=== PATIENT | female | born 1990 | race Caucasian/White ===

== ENCOUNTER → 2016-07-05 | Outpatient (CLI) | payer OTHER ==
--- NOTE | 2016-07-05 15:02 | US ---
EXAMINATION TYPE: US OB <= 14 wk fetus DATE OF EXAM: 07/05/2016 2:30 PM COMPARISON: NONE CLINICAL HISTORY: Confirm dates. Uncertain LMP. EXAM PERFORMED: <14wk OB EXAM MEASUREMENTS: GESTATIONAL AGE / DATING Physician Established: Not established Dates by LMP: (12 weeks/0 days) EDC: 01/17/2017 Dates by First Scan: No Previous Dates by Current Scan : (11 weeks/5 days) EDC: 01/19/2017 MATERNAL ANATOMY Uterus: 14.0 x 9.6 x 7.7 cm Right Ovary: 2.4 x 1.6 x 1.5 cm Left Ovary: 2.9 x 2.5 x 1.8 cm Post CDS / Adnexa: wnl Presence of free fluid: no Presence of corpus luteal cyst: no Presence of subchorionic bleed: 1.1 x 3.3 x 0.9 cm GESTATION / SURVEY CRL: 4.7 cm (11 weeks/4 days) MSD: 5.5 cm (11 weeks/3 days) BPD: 1.5 cm (12 weeks/1day) Heart Rate: 155 bpm Rhythm: Normal IUP: Viable IUP Date of LMP: 04/12/2016 IMPRESSION: normal, viable 11+ week IUP
[2016-07-05 15:12] LABS: CHCM 32.9; HCT 37.4 % (34.0-46.0); HDW 2.72; HGB 12.4 gm/dL (11.4-16.0); MCH 28.2 pg (25.0-35.0); MCV 85.4 fL (80.0-100.0); Mean Platelet Volume 7.1; RBC 4.38 m/uL (3.80-5.40); RDW 14.4 % (11.5-15.5); WBC 10.8 k/uL (3.8-10.6)
[2016-07-05 15:32] LABS: ALT 21 U/L (9-52); AST 15 U/L (14-36); Bilirubin, Delta 0.3 mg/dL (0.0-0.2); Glucose 78 mg/dL (74-99); Non-African American GFR(MDRD) >60 (>60 ml/min/1.73 sqM); Total Bilirubin 0.5 mg/dL (0.2-1.3)
[2016-07-05 16:47] LABS: Hepatitis B Surface Ag Index 0.08
[2016-07-05 21:30] LABS: Treponemal Ab Non-Reactive (Non-Reactive)
== END | disposition home or self-care (01) ==
LOC: RADUSWWP 13:54
PROVIDERS: ATTEND Obstetrics & Gynecology
DX: Z34.81 Encounter for supervision of other normal pregnancy, first trimester (principal); Z36 Encounter for antenatal screening of mother; O99.712 Diseases of the skin and subcutaneous tissue complicating pregnancy, second trimester; L29.9 Pruritus, unspecified; Z3A.01 Less than 8 weeks gestation of pregnancy; Z3A.11 11 weeks gestation of pregnancy
CPT/HCPCS: 36415; 76801; 82239; 82248; 82565; 82947; 84443; 84450; 84460; 85027; 86762; 86777; 86778; 86780; 86850; 86900; 86901; 87340

== ENCOUNTER → 2016-08-22 | Outpatient (CLI) | payer OTHER ==
--- NOTE | 2016-08-22 12:38 | US ---
EXAMINATION TYPE: US OB anatomy transabd DATE OF EXAM: 08/22/2016 11:39 AM COMPARISON: NONE HISTORY: anatomy TECHNIQUE: OBTA EXAM MEASUREMENTS: GESTATIONAL AGE / DATING Physician Established: (18 weeks/4 days) EDC: 01/19/2017 Dates by LMP: unknown Dates by First Scan: (18 weeks/4 days) EDC: 01/19/2017 Dates by Current Scan for: (18 weeks/2 days) EDC: 01/21/2017 SURVEY IUP: Single PLACENTA: Anterior PREVIA: No previa ARY: 12.2 cm Normal CERVICAL LENGTH (transabdominal: norm > 3.0cm): 4.0 cm BIOMETRY PRESENTATION: Vertex LIE: Longitudinal BPD: 4.2 cm 18 weeks / 6 days HC: 15.6 cm 18 weeks / 4 days AC: 12.4 cm 18 weeks / 1 days FL: 2.5 cm 17 weeks / 4 days ESTIMATED WEIGHT IN GRAMS: 215 grams ESTIMATED WEIGHT IN LBS/OZS: 0 lbs. 8 oz. WEIGHT PERCENTAGE BASED ON ESTABLISHED DATE: 13 % HC/AC: 1.2 Normal FL/AC: 20 Normal HEART RATE: 155 bpm RHYTHM: Normal ANATOMY SEEN (within normal limits): * Lateral Vent (< 1 cm) 0.6 cm * Cisterna Magna (< 1.1 cm) 0.2 cm * Nuchal Fold (< 0.6 cm) 0.2 cm * Cerebellum (varies with age) 1.8 cm Choroid Plexus (bilateral) Midline Falx Cavus Septi Pellucidi Four Chamber Heart Outflow tracts: LVOT/RVOT Stomach Situs Diaphragm Kidneys (bilateral) Bladder Cord Insert Three Vessel Cord Longitudinal Spine Transverse Spine Arms (bilateral) Legs (bilateral) ANATOMY NOT SEEN: Nose / Lips, positioning and hand blocking view T IMPRESSION: Viable 18w2d fetus seen and appears wnl
== END ==
LOC: RADUSWWP 10:41
PROVIDERS: ATTEND Obstetrics & Gynecology
DX: O36.62X0 Maternal care for excessive fetal growth, second trimester, not applicable or unspecified (principal)
CPT/HCPCS: 76811

== ENCOUNTER → 2016-11-08 | Outpatient (CLI) | payer OTHER ==
[2016-11-08 10:42] LABS: CH 31.2; HCT 29.8 % (34.0-46.0); HDW 2.98; HGB 10.2 gm/dL (11.4-16.0); MCH 31.8 pg (25.0-35.0); MCHC 34.3 g/dL (31.0-37.0); MCV 92.6 fL (80.0-100.0); Mean Platelet Volume 7.2; RBC 3.22 m/uL (3.80-5.40); RDW 14.3 % (11.5-15.5); WBC 12.2 k/uL (3.8-10.6)
== END | disposition home or self-care (01) ==
LOC: LABWHC1 09:07
PROVIDERS: ATTEND Obstetrics & Gynecology
DX: Z34.82 Encounter for supervision of other normal pregnancy, second trimester (principal); Z3A.00 Weeks of gestation of pregnancy not specified
CPT/HCPCS: 36415; 82950; 85027; 86850

== ENCOUNTER → 2016-11-28 | Outpatient (CLI) | payer OTHER ==
[2016-11-28 12:22] LABS: Glucose 3 Hour, Gest 132 mg/dL
== END | disposition home or self-care (01) ==
LOC: LABWHC1 08:00
PROVIDERS: ATTEND Obstetrics & Gynecology
DX: O99.810 Abnormal glucose complicating pregnancy (principal); Z3A.00 Weeks of gestation of pregnancy not specified
CPT/HCPCS: 36415; 82951; 82952

== ENCOUNTER 2017-01-10 10:02 | Inpatient (IN) | payer OTHER ==
[2017-01-10] MEDS ORDERED: ceFAZolin 2 GM in SODIUM CHLORIDE 0.9% 100 ML IVPB ONE (10:21)
[2017-01-10] MEDS ORDERED: CITRIC ACID-SODIUM CITRATE 15 ML CUP PO ONE (10:21)
[2017-01-10 10:30] VITALS: BMI 33.5
[2017-01-10] MEDS: LACTATED RINGERS 1,000 ML IV SCH ×3 (10:32→21:43)
[2017-01-10 11:03] LABS: Basophils % (A) 0 %; CH 29.8; Eosinophils # (A) 0.1 k/uL (0-0.7); Eosinophils % (A) 1 %; HCT 32.6 % (34.0-46.0); HDW 3.43; HGB 11.2 gm/dL (11.4-16.0); Luc # (Auto) 0.14; Luc % (Auto) 1; Lymphocytes # (A) 2.4 k/uL (1.0-4.8); Lymphocytes % (A) 21 %; MCH 30.4 pg (25.0-35.0); MCHC 34.4 g/dL (31.0-37.0); MCV 88.2 fL (80.0-100.0); Mean Platelet Volume 8.4; Monocytes # (A) 0.5 k/uL (0-1.0); Monocytes % (A) 4 %; Neutrophils # (A) 8.2 k/uL (1.3-7.7); Neutrophils % (A) 73 %; Poikilocytosis Slight; RDW 14.8 % (11.5-15.5); WBC 11.3 k/uL (3.8-10.6); WBC (Perox) 10.78
[2017-01-10] MEDS ORDERED: ONDANSETRON 4 MG/2 ML VIAL ONE (12:32)
[2017-01-10] MEDS ORDERED: PHENYLEPHRINE-0.9% NACL SYG 1 MG/10 ML SYRINGE ONE (12:32)
[2017-01-10] MEDS ORDERED: OXYTOCIN 10 UNIT/ML 1 ML VIAL ONE (12:32)
[2017-01-10] MEDS ORDERED: KETOROLAC 30 MG/ML 1 ML VIAL ONE (12:32)
[2017-01-10] MEDS ORDERED: Acetaminophen-Codeine 300-30mg TAB PO PRN (13:10)
[2017-01-10] MEDS ORDERED: SIMETHICONE 80 MG CHEWABLE PO PRN (13:10)
[2017-01-10] MEDS ORDERED: diphenhydrAMINE 50 MG CAP PO PRN (13:10)
[2017-01-10] MEDS ORDERED: diphenhydrAMINE 25 MG CAP PO PRN (13:10)
[2017-01-10] MEDS ORDERED: METOCLOPRAMIDE 5 MG/ML 2 ML VIAL IVP PRN (13:10)
[2017-01-10] MEDS ORDERED: NALOXONE 0.4 MG/ML 1 ML VIAL IV PRN (13:10)
[2017-01-10] MEDS ORDERED: diphenhydrAMINE 50 MG/ML 1 ML VIAL IVP PRN ×2 (13:10)
[2017-01-10] MEDS ORDERED: ZOLPIDEM 5 MG TAB PO PRN (13:10)
[2017-01-10] MEDS ORDERED: KETOROLAC 30 MG/ML 1 ML VIAL IVP PRN (13:10)
[2017-01-10] MEDS ORDERED: ACETAMINOPHEN TAB 325 MG TAB PO PRN (13:10)
[2017-01-10] MEDS ORDERED: ONDANSETRON 4 MG/2 ML VIAL IVP PRN (13:10)
--- NOTE | 2017-01-10 13:14 | P.HPOB ---
History of Present Illness H&P Date: 01/10/17 Chief Complaint: Intrauterine : Previous sections: Family planning Erin is a 26-year-old with 3 prior sections here for same with tubal ligation. Her course generally speaking has been unremarkable. She was feeling well at this time. She is a 2 pack per day smoker and we have been following closely for sizing gross. She has had several ultrasounds during the course the to evaluate for sizing growth. Pertinent labs do include A- blood type Rh antibody was negative, rubella was immune, hepatitis B surface antigen and RPR were negative she did have initial toxo screen was positive but repeat testing was negative. On physical exam this is an overweight female whose HEENT is unremarkable. Heart regular, lungs clear, extremities without pain. Osteopathic exams unremarkable. abdomen soft gravid uterus is noted. heart tones are reactive in the 130s prior to going to the . Assessment intrauterine with family planning. Plan repeat low transverse section with partial bilateral salpingectomy Past Medical History Past Medical History: No Reported History History of Any Multi-Drug Resistant Organisms: None Reported Past Surgical History: Adenoidectomy, Section, Ear Surgery Past Anesthesia/Blood Transfusion Reactions: No Reported Reaction Past Psychological History: No Psychological Hx Reported Additional Psychological History / Comment(s): hx of depression as teenager Smoking Status: Current every day smoker Past Alcohol Use History: None Reported Additional Past Alcohol Use History / Comment(s): SMOKES 1-2 PPD SINCE AGE 12 Past Drug Use History: None Reported - Past Family History Father Family Medical History: Cancer Additional Family Medical History / Comment(s): kidney cancer Medications and Allergies Home Medications Medication Instructions Recorded Confirmed Type No Known Home Medications [No 01/09/17 01/09/17 History Known Home Medications] Allergies Allergy/AdvReac Type Severity Reaction Status Date / Time No Known Allergies Allergy Verified 01/09/17 12:58 Exam Osteopathic Statement: *. No significant issues noted on an osteopathic structural exam other than those noted in the History and Physical/Consult. - Vital Signs Vital signs: Vital Signs Temp Pulse Resp BP 01/10/17 10:20 98.5 F 94 16 139/74 Intake and Output 01/09/17 01/10/17 01/10/17 22:59 06:59 14:59 Other: Weight 88.451 kg Patient Weight 01/11/17 06:59 Weight 88.451 kg Results Result Diagrams: 01/10/17 10:15 Abnormal Lab Results - Last 24 Hours (Table) 01/10/17 Range/Units 10:15 WBC 11.3 H (3.8-10.6) k/uL RBC 3.70 L (3.80-5.40) m/uL Hgb 11.2 L (11.4-16.0) gm/dL Hct 32.6 L (34.0-46.0) % Neutrophils # 8.2 H (1.3-7.7) k/uL
--- NOTE | 2017-01-10 13:18 | P.OP ---
Date of Procedure: 01/10/17 Preoperative Diagnosis: Intrauterine at 39 weeks: Previous sections: Family planning Postoperative Diagnosis: Same Procedure(s) Performed: Repeat low transverse section with bilateral partial salpingectomy Implants: Anesthesia: spinal Surgeon: Pancho Corona Nuclear Reactor Engineer #1: Sarina Sainz Estimated Blood Loss (ml): 600 IV fluids (ml): 1,000 Urine output (ml): 200 Pathology: other (Placenta) Condition: stable Disposition: floor Indications for Procedure: Operative Findings: Female scores of 8 and 9 at one and 5 minutes respectively weight was 5 lbs. 13 oz. Description of Procedure: Patient was taken to the operating suite where a spinal anesthetic was found be adequate. She was prepped and draped in the normal sterile fashion and placed in dorsal supine position with leftward tilt. Initially a Pfannenstiel skin incision was made this incision was then carried through to underlying layer of the fascia was second knife. Fascia was then nicked in the midline and this opening was extended laterally with Armstrong scissors. Superior and inferior aspect of this incision were then grasped tented up and bluntly and sharply dissected off the rectus muscles. Rectus muscles were then divided midline and sharp dissection through the peritoneum was made. This opening was then extended superiorly and inferiorly with good visualization of both bowel bladder. Bladder blade was then placed and bladder flap was identified and entered with Metzenbaum scissors and carried across face uterus to allow the bladder to be dissected out of the operative field. Knife was then used to incise uterus this opening was then extended bluntly following entry with a hemostat. Head was then atraumatically delivered and mouth nares were bulb suction. Interim posterior shoulders were easily delivered with gentle downward and upward traction followed by the remainder the baby. Umbilical cord was then clamped cut usual fashion an nursery personnel was present to assume care. Placenta was then delivered intact following obtaining blood for Rh antibody testing. Uterus was then exteriorized cleared of clots and debris and closed in 1 layer with 0 Vicryl suture. Once excellent hemostasis was obtained attention was turned to the fallopian tubes where a hemostat was grasped the fallopian tube 2-3 cm from uterine cornu and a window was created in the mesosalpinx bilaterally 2 proximal and 2 distal 2-0 silk sutures with the intervening 1-2 cm segment excised and tips cauterized. Blood and debris was then suctioned from the posterior cul-de-sac and the uterus was reinserted into the abdomen. Peritoneal layer was then closed with 0 Vicryl suture fascial layer was closed [place] suture one layer of 3-0 Vicryl was placed in the deep subcuticular tissues. Skin was then closed with 4-0 Vicryl on a Erickson needle. Prior to closure of the peritoneum and should be noted that we did inspect fallopian tubes and no bleeding was noted from the fallopian tubes. She tolerated surgery very well. Sponge, lap, needle counts were all correct 2. Patient was then taken to the recovery room in stable and satisfactory condition.
[2017-01-10] MEDS: SENNOSIDES-DOCUSATE SODIUM 1 EACH TAB PO SCH (21:43)
[2017-01-10] MEDS: NICOTINE 14MG/24HR PATCH TRANSDERM SCH (23:42)
[2017-01-11] MEDS: LACTATED RINGERS 1,000 ML IV SCH (03:58)
--- NOTE | 2017-01-11 08:39 | P.PNOBGPC ---
Subjective - Subjective Principal diagnosis: pod #1 Interval history: doing very well. all questions answered. vss afebrile Patient reports: Reports appetite normal, Reports voiding normally, Reports pain well controlled, Reports ambulating normally : doing well Objective - Vital Signs Latest vital signs: Vital Signs Temp Pulse Resp BP Pulse Ox 01/11/17 03:54 97.9 F 67 15 105/63 100 01/11/17 00:00 98.3 F 75 18 111/63 99 01/10/17 19:57 98.2 F 70 17 121/67 99 01/10/17 16:00 97.8 F 71 17 107/56 98 01/10/17 15:01 73 16 112/58 01/10/17 14:31 98.2 F 73 16 111/55 01/10/17 14:16 82 16 112/55 01/10/17 14:01 69 16 102/58 01/10/17 13:46 98.5 F 68 16 96/54 01/10/17 13:31 97.9 F 90 16 94/50 01/10/17 10:20 98.5 F 94 16 139/74 Intake and Output 01/10/17 01/11/17 01/11/17 22:59 06:59 14:59 Intake Total 1800 Output Total 250 150 200 Balance -250 1650 -200 Intake: Oral 1800 Output: Urine 250 150 200 Other: Voiding Method Indwelling Catheter # Voids 0 1 1 - Exam Lungs: bilateral: normal Chest: Normal S1, Normal S2 Extremities: Present: normal Abdomen: Present: normal appearance, soft. Absent: distention, tenderness Incision: Present: normal, dry, intact Uterus: Present: normal, firm - Labs Labs: Abnormal Lab Results - Last 24 Hours (Table) 01/10/17 Range/Units 10:15 WBC 11.3 H (3.8-10.6) k/uL RBC 3.70 L (3.80-5.40) m/uL Hgb 11.2 L (11.4-16.0) gm/dL Hct 32.6 L (34.0-46.0) % Neutrophils # 8.2 H (1.3-7.7) k/uL
[2017-01-11 09:26] LABS: Basophils % (A) 0 %; CHCM 32.9; Eosinophils # (A) 0.2 k/uL (0-0.7); Eosinophils % (A) 2 %; HCT 26.1 % (34.0-46.0); HDW 3.53; Hypochromasia Slight; Luc # (Auto) 0.24; Luc % (Auto) 2; Lymphocytes # (A) 3.1 k/uL (1.0-4.8); Lymphocytes % (A) 25 %; MCHC 33.8 g/dL (31.0-37.0); MCV 88.8 fL (80.0-100.0); Mean Platelet Volume 7.8; Monocytes # (A) 0.5 k/uL (0-1.0); Monocytes % (A) 4 %; Neutrophils # (A) 8.4 k/uL (1.3-7.7); Neutrophils % (A) 67 %; Poikilocytosis Slight; RBC 2.95 m/uL (3.80-5.40); RDW 14.5 % (11.5-15.5); WBC 12.5 k/uL (3.8-10.6); WBC (Perox) 12.82
[2017-01-11 09:27] LABS: HGB 8.8 gm/dL (11.4-16.0)
[2017-01-11] MEDS: SENNOSIDES-DOCUSATE SODIUM 1 EACH TAB PO SCH ×2 (10:29→21:32)
--- NOTE | 2017-01-11 10:46 | P.PN ---
Progress Note - Text 0700 Anesthesia POD 1. Patient is status post section under spinal anesthesia with intra-thecal preservative free morphine 300 g. Mild pruritus, good post-op analgesia, and no headache or other complications.
[2017-01-11] MEDS: IBUPROFEN 600 MG TAB PO PRN ×2 (13:58→22:35)
[2017-01-11] MEDS: Acetaminophen-Codeine 300-30mg TAB PO PRN (21:30)
[2017-01-11] MEDS: NICOTINE 14MG/24HR PATCH TRANSDERM SCH (21:31)
[2017-01-12] MEDS: Acetaminophen-Codeine 300-30mg TAB PO PRN (06:31)
--- NOTE | 2017-01-12 08:15 | P.DS ---
Providers Date of admission: 01/10/17 10:02 Expected date of discharge: 01/12/17 Attending physician: Pancho Corona Primary care physician: [facility] Course: Erin is doing very well postop day 2. She is involuting, voiding, and she is tolerating her diet. She voices no complaint. Vital signs are stable and afebrile. Heart regular, lungs clear, extremities without pain. Abdomen soft positive bowel sounds are noted and her incision is clean dry and intact. Discharge instructions were thoroughly reviewed and she will plan to wash incision twice daily with gentle soap and water. She'll follow up with me in 1 week. Prescriptions for pain relievers including Tylenol No. 3 and Motrin have been provided. All other questions are answered for her prior to discharge and she is stable for discharge at this time. Patient Condition at Discharge: Good Plan - Discharge Summary New Discharge Prescriptions: New Acetaminophen-Codeine 300-30mg [Tylenol #3] 1 tab PO Q4H PRN #30 tablet PRN Reason: Pain Ibuprofen [Motrin] 600 mg PO Q6HR PRN #30 tab PRN Reason: Pain Discharge Medication List Acetaminophen-Codeine 300-30mg [Tylenol #3] 1 tab PO Q4H PRN #30 tablet [Rx] Ibuprofen [Motrin] 600 mg PO Q6HR PRN #30 tab 01/12/17 [Rx] Follow up Appointment(s)/Referral(s): Pancho Corona DO [Doctor of Osteopathic Medicine] - 1 Week Activity/Diet/Wound Care/Special Instructions: No heavy lifting limited stairs and driving and pelvic rest. If any high temperatures, heavy bleeding, or severe pain call my Discharge Disposition: HOME SELF-CARE
[2017-01-12] MEDS: IBUPROFEN 600 MG TAB PO PRN (08:40)
[2017-01-12] MEDS: SENNOSIDES-DOCUSATE SODIUM 1 EACH TAB PO SCH (08:44)
[2017-01-12 09:11] VITALS: BP 115/65; PULSE 75; RESP 18; TEMP 98.6
== END 2017-01-12 11:08 | disposition home or self-care (01) | DRG 766 ==
LOC: 4FBP 10:02
PROVIDERS: ADMIT Obstetrics & Gynecology; ATTEND Obstetrics & Gynecology
PROC: 0UB70ZZ Excision of Bilateral Fallopian Tubes, Open Approach (ICD-10-PCS; 2017-01-10)
PROC: 10D00Z1 Extraction of Products of Conception, Low, Open Approach (ICD-10-PCS; principal; 2017-01-10 12:00)
DX: O34.211 Maternal care for low transverse scar from previous cesarean delivery (principal); O99.72 Diseases of the skin and subcutaneous tissue complicating childbirth; O99.334 Smoking (tobacco) complicating childbirth; L29.9 Pruritus, unspecified; Z37.0 Single live birth; Z3A.39 39 weeks gestation of pregnancy; Z80.51 Family history of malignant neoplasm of kidney
CPT/HCPCS: 85025; 86850; 86900; 86901; 88302; 88307

== ENCOUNTER 2017-02-16 16:53 | Emergency (ER) | payer OTHER ==
--- NOTE | 2017-02-16 17:24 | ED ---
Abdominal Pain HPI - General Chief Complaint: Abdominal Pain Stated Complaint: Abd Pain 1 Month Ago Time Seen by Provider: 02/16/17 17:01 Source: patient, RN notes reviewed Mode of arrival: ambulatory Limitations: no limitations - History of Present Illness Initial Comments: 27-year-old female presents emergency Department chief complaint abdominal pain , vaginal bleeding. Patient states she is just over one month . Patient states her ORDNANCE OFFICER was Dr. Islas. Patient states that she had a C- section which was uncomplicated. Patient states that she is passing blood clots at this time. Patient states that she is not using any. She states she isn't and parents going through one hour at this time. Patient states that she called her ORDNANCE OFFICER early cannot get in until February 27. Patient denies any headache, dizziness, chest pain, shortness breath, vomiting or diarrhea. She denies any dysuria or urinary frequency. - Related Data Home Medications Medication Instructions Recorded Confirmed Acetaminophen-Codeine 300-30mg 1 tab PO Q4H PRN 02/16/17 02/16/17 [Tylenol #3] HYDROcodone/APAP 5-325MG [[place] 1 tab PO DAILY PRN 02/16/17 02/16/17 5-325] Allergies Allergy/AdvReac Type Severity Reaction Status Date / Time No Known Allergies Allergy Verified 02/16/17 17:00 Review of Systems ROS Statement: Those systems with pertinent positive or pertinent negative responses have been documented in the HPI. ROS Other: All systems not noted in ROS Statement are negative. Past Medical History Past Medical History: No Reported History History of Any Multi-Drug Resistant Organisms: None Reported Past Surgical History: Adenoidectomy, Section, Ear Surgery, Tubal Ligation Past Anesthesia/Blood Transfusion Reactions: No Reported Reaction Past Psychological History: No Psychological Hx Reported Smoking Status: Current every day smoker Past Alcohol Use History: None Reported Past Drug Use History: None Reported - Past Family History Father Family Medical History: Cancer Additional Family Medical History / Comment(s): kidney cancer General Exam Limitations: no limitations General appearance: alert, in no apparent distress Respiratory exam: Present: normal lung sounds bilaterally. Absent: respiratory distress, wheezes, rales, rhonchi, stridor Cardiovascular Exam: Present: regular rate, normal rhythm, normal heart sounds. Absent: systolic murmur, diastolic murmur, rubs, gallop, clicks GI/Abdominal exam: Present: soft, normal bowel sounds. Absent: distended, tenderness, guarding, rebound, rigid External exam: Present: normal external exam, other (Exam performed at [facility]) Speculum exam: Present: vaginal bleeding (Minimal), other (Cervix is closed) Back exam: Absent: CVA tenderness (R), CVA tenderness (L) Neurological exam: Present: alert, oriented X3, CN II-XII intact Skin exam: Present: warm, dry, intact, normal color. Absent: rash Course Vital Signs 02/16/17 02/16/17 16:57 18:51 Temperature 97.8 F 98.1 F Pulse Rate 77 62 Respiratory 18 16 Rate Blood Pressure 109/65 91/54 O2 Sat by Pulse 98 97 Oximetry Medical Decision Making - Medical Decision Making 27-year-old female to the emergency department for vaginal bleeding 1 month . Patient's labwork is a stable hemoglobin of 12. Patient ultrasound does not reveal any acute abnormality. Patient has very minimal bleeding on pelvic exam. Patient was given a fluid bolus and she has a symptomatic at this time. Facial follow-up Dr. Islas tomorrow. - Lab Data Result diagrams: 02/16/17 17:35 02/16/17 17:25 Lab Results 02/16/17 02/16/17 02/16/17 Range/Units 17:25 17:35 17:55 WBC 8.0 (3.8-10.6) k/uL RBC 4.37 (3.80-5.40) m/uL Hgb 12.0 D (11.4-16.0) gm/dL Hct 37.0 (34.0-46.0) % MCV 84.6 (80.0-100.0) fL MCH 27.5 (25.0-35.0) pg MCHC 32.5 (31.0-37.0) g/dL RDW 14.4 (11.5-15.5) % Plt Count 289 (150-450) k/uL Neutrophils % 60 % Lymphocytes % 32 % Monocytes % 4 % Eosinophils % 2 % Basophils % 0 % Neutrophils # 4.9 (1.3-7.7) k/uL Lymphocytes # 2.6 (1.0-4.8) k/uL Monocytes # 0.3 (0-1.0) k/uL Eosinophils # 0.2 (0-0.7) k/uL Basophils # 0.0 (0-0.2) k/uL Sodium 142 (137-145) mmol/L Potassium 4.4 (3.5-5.1) mmol/L Chloride 107 (98-107) mmol/L Carbon Dioxide 21 L (22-30) mmol/L Anion Gap 14 mmol/L BUN 12 (7-17) mg/dL Creatinine 0.80 (0.52-1.04) mg/dL Est GFR (MDRD) Af Amer >60 (>60 ml/min/1.73 sqM) Est GFR (MDRD) Non-Af >60 (>60 ml/min/1.73 sqM) Glucose 85 (74-99) mg/dL Calcium 9.9 (8.4-10.2) mg/dL Urine Color Yellow Urine Appearance Clear (Clear) Urine pH 6.5 (5.0-8.0) Ur Specific [place] 1.016 (1.001-1.035) Urine Protein Negative (Negative) Urine Glucose (UA) Negative (Negative) Urine Ketones Negative (Negative) Urine Blood Moderate H (Negative) Urine Nitrite Negative (Negative) Urine Bilirubin Negative (Negative) Urine Urobilinogen <2.0 (<2.0) mg/dL Ur Leukocyte Esterase Negative (Negative) Urine RBC 18 H (0-5) /hpf Urine WBC 1 (0-5) /hpf Ur Squamous Epith Cells 1 (0-4) /hpf Urine Mucus Rare H (None) /hpf Disposition Clinical Impression: Vaginal bleeding Disposition: HOME SELF-CARE Condition: Stable Instructions: Bleeding (ED) Additional Instructions: Please return to the Emergency Department if symptoms worsen or any other concerns. Referrals: Kristina Foster MD [Primary Care Provider] - 1-2 days Time of Disposition: 19:29
[2017-02-16 17:46] LABS: Anion Gap 14 mmol/L; Blood Urea Nitrogen 12 mg/dL (7-17); Calcium 9.9 mg/dL (8.4-10.2); Carbon Dioxide 21 mmol/L (22-30); Chloride 107 mmol/L (98-107); Glucose 85 mg/dL (74-99); Non-African American GFR(MDRD) >60 (>60 ml/min/1.73 sqM); Potassium 4.4 mmol/L (3.5-5.1); Sodium 142 mmol/L (137-145)
[2017-02-16 17:47] LABS: Basophils % (A) 0 %; CH 27.4; CHCM 32.4; Eosinophils # (A) 0.2 k/uL (0-0.7); Eosinophils % (A) 2 %; HDW 3.04; Luc # (Auto) 0.17; Luc % (Auto) 2; Lymphocytes # (A) 2.6 k/uL (1.0-4.8); Lymphocytes % (A) 32 %; MCH 27.5 pg (25.0-35.0); MCHC 32.5 g/dL (31.0-37.0); MCV 84.6 fL (80.0-100.0); Mean Platelet Volume 7.3; Monocytes # (A) 0.3 k/uL (0-1.0); Monocytes % (A) 4 %; Neutrophils # (A) 4.9 k/uL (1.3-7.7); Neutrophils % (A) 60 %; RBC 4.37 m/uL (3.80-5.40); RDW 14.4 % (11.5-15.5); WBC (Perox) 7.98
[2017-02-16 18:14] LABS: Appearance,Urine Clear (Clear); Bilirubin,Urine Negative (Negative); Glucose,Urine (UA) Negative (Negative); Ketones,Urine Negative (Negative); Leukocyte Esterase,Urine Negative (Negative); Mucus,Urine Rare /hpf; Nitrite,Urine Negative (Negative); PH, Urine 6.5 (5.0-8.0); Particle Count 1329; Protein,Urine Negative (Negative); RBC,Urine 18 /hpf (0-5); Specific Gravity,Urine 1.016 (1.001-1.035); Squamous Epithelial Cell,Urine 1 /hpf (0-4); UA Billing (MACRO vs. MICRO) MICRO; Urobilinogen,Urine <2.0 mg/dL (<2.0); WBC,Urine 1 /hpf (0-5)
--- NOTE | 2017-02-16 18:50 | US ---
EXAMINATION TYPE: US pelvic complete DATE OF EXAM: 02/16/2017 COMPARISON: NONE CLINICAL HISTORY: Pain. Pain c section x 1 month ago TECHNIQUE: Transabdominal (TA) Date of LMP: Unknown EXAM MEASUREMENTS: Uterus: 9.5 x 5.4 x 5.2 cm Endometrial Stripe: 0.86 cm Right Ovary: 2.4 x 1.9 x 2.3 cm Left Ovary: 2.6 x 2.0 1.5 cm 1. Uterus: Anteverted wnl 2. Endometrium: wnl 3. Right Ovary: wnl 4. Left Ovary: wnl Spectral, color and waveform doppler imaging shows good arterial and venous flow within the ovaries ; there is no evidence for ovarian torsion. 5. Bilateral Adnexa: wnl 6. Posterior cul-de-sac: wnl IMPRESSION: Normal transabdominal pelvic sonogram.
[2017-02-16 18:52] VITALS: RESP 16
[2017-02-16] MEDS ORDERED: SODIUM CHLORIDE 0.9% 1,000 ML IV ONE (18:54)
[2017-02-16 19:49] VITALS: BP 131/69; PULSE 66; TEMP 97.9
== END 2017-02-16 19:56 | disposition home or self-care (01) ==
LOC: EC 16:53
DX: O72.1 Other immediate postpartum hemorrhage (principal); O99.335 Smoking (tobacco) complicating the puerperium; F17.200 Nicotine dependence, unspecified, uncomplicated; Z98.890 Other specified postprocedural states; Z98.51 Tubal ligation status
CPT/HCPCS: 36415; 76856; 80048; 81001; 85025; 93975; 96360; 99284

== ENCOUNTER 2017-07-18 17:32 | Emergency (ER) | payer OTHER ==
[2017-07-18 17:42] VITALS: RESP 18
[2017-07-18] MEDS ORDERED: DICYCLOMINE 10 MG/ML 2 ML AMP IM STA (19:10)
[2017-07-18] MEDS ORDERED: SODIUM CHLORIDE 0.9% 1,000 ML IV STA (19:10)
[2017-07-18] MEDS ORDERED: SUCRALFATE 1 GM TAB PO STA (19:12)
[2017-07-18] MEDS ORDERED: FAMOTIDINE 20 MG/2 ML VIAL IV STA (19:13)
--- NOTE | 2017-07-18 19:14 | ED ---
Abdominal Pain HPI - General Chief Complaint: Abdominal Pain Stated Complaint: Stomach pain/dizzy Time Seen by Provider: 07/18/17 18:59 Source: patient Mode of arrival: ambulatory Limitations: no limitations - History of Present Illness Initial Comments: Patient is a 27-year-old female presents to the emergency department for abdominal pain that is described as a shooting epigastric pain that feels a stabbing sensation or crampy sensation that has been intermittent. The pain does not radiate and it does not have any modifying factors and has been present for 1 day. She denies any nausea/vomiting/diarrhea and states that she has had intermittent lightheadedness and dizziness but none at this moment. - Related Data Previous Rx's Medication Instructions Recorded Dicyclomine [Bentyl] 20 mg PO QID PRN #20 tablet 07/18/17 Sucralfate [Carafate] 1 gm PO ACHS #150 ml 07/18/17 Allergies Allergy/AdvReac Type Severity Reaction Status Date / Time No Known Allergies Allergy Verified 07/18/17 19:10 Review of Systems ROS Statement: Those systems with pertinent positive or pertinent negative responses have been documented in the HPI. Constitutional: Negative for chills, fatigue and fever. HENT: Negative for congestion. Respiratory: Negative for chest tightness, shortness of breath and wheezing. Cardiovascular: Negative for chest pain and palpitations. Gastrointestinal: Positive for abdominal pain. Negative for abdominal distention , diarrhea, nausea and vomiting. Genitourinary: Negative for dysuria. Musculoskeletal: Negative for back pain, neck pain and neck stiffness. Skin: Negative for color change. Neurological: Negative for dizziness, speech difficulty, weakness and positive for light-headedness. Psychiatric/Behavioral: Negative for agitation and confusion. The patient is not nervous/anxious. ROS Other: All systems not noted in ROS Statement are negative. Past Medical History Past Medical History: No Reported History History of Any Multi-Drug Resistant Organisms: None Reported Past Surgical History: Adenoidectomy, Section, Ear Surgery, Tubal Ligation Past Anesthesia/Blood Transfusion Reactions: No Reported Reaction Past Psychological History: No Psychological Hx Reported Smoking Status: Current every day smoker Past Alcohol Use History: None Reported Past Drug Use History: None Reported - Past Family History Father Family Medical History: Cancer Additional Family Medical History / Comment(s): kidney cancer General Exam - General Exam Comments Initial Comments: Physical Exam Constitutional: Pt is oriented to person, place, and time. Pt appears well- developed and well-nourished. No distress. HENT: Head: Normocephalic and atraumatic. Eyes: EOM are normal. Neck: Normal range of motion. Neck supple. Cardiovascular: Normal rate, regular rhythm, S1 normal, S2 normal and normal heart sounds. Exam reveals no gallop and no friction rub. No murmur heard. Pulmonary/Chest: Effort normal and breath sounds normal. No tachypnea and no bradypnea. No respiratory distress. No wheezes or rales noted. Abdominal: Soft. Bowel sounds are normal. Pt exhibits no shifting dullness, no distension, no pulsatile liver, no fluid wave, no abdominal bruit and no ascites. There is no tenderness. There is no rigidity, no rebound, no guarding, no tenderness at McBurney's point and negative Quintero's sign. Musculoskeletal: Normal range of motion. Neurological: Pt is alert and oriented to person, place, and time. No cranial nerve deficit. Skin: Skin is warm and dry. No rash noted. He is not diaphoretic. No erythema. No pallor. Psychiatric: He has a normal mood and affect. His behavior is normal. Thought content normal. Limitations: no limitations Course Vital Signs 07/18/17 17:38 Temperature 98.3 F Pulse Rate 105 H Respiratory 18 Rate Blood Pressure 119/73 O2 Sat by Pulse 97 Oximetry Medical Decision Making - Medical Decision Making Patient was reevaluated prior to disposition andbe resting in bed comfortably in no acute distress. Laboratories revealed that there was no evidence of urinary tract infection, transaminitis and electrolytes were relatively within normal limits. Patient also currently declined Bentyl as she stated that she did not come here for additional pain but stated that the other medications did help.It was explained that while there does not appear to be an emergent process , the etiology of the symptoms are still unclear but possibly related to GERD, peptic ulcer disease, viral illness and may need further workup as an outpatient if symptoms continue. He was also advised that she will be given a prescription for Bentyl as well as Carafate.Explained all labs and diagnostic test results and that we will discharge the patient home and patient is to follow up with PCP in 1-2 days and return to the ED if symptoms worsen. Pt is agreeable to plan. - Lab Data Result diagrams: 07/18/17 19:25 07/18/17 19:25 Lab Results 07/18/17 07/18/17 07/18/17 Range/Units 19:25 19:25 19:25 WBC 10.9 H (3.8-10.6) k/uL RBC 4.98 (3.80-5.40) m/uL Hgb 12.9 (11.4-16.0) gm/dL Hct 42.2 (34.0-46.0) % MCV 84.8 (80.0-100.0) fL MCH 26.0 (25.0-35.0) pg MCHC 30.7 L (31.0-37.0) g/dL RDW 15.1 (11.5-15.5) % Plt Count 254 (150-450) k/uL Neutrophils % 67 % Lymphocytes % 26 % Monocytes % 4 % Eosinophils % 1 % Basophils % 0 % Neutrophils # 7.3 (1.3-7.7) k/uL Lymphocytes # 2.8 (1.0-4.8) k/uL Monocytes # 0.4 (0-1.0) k/uL Eosinophils # 0.1 (0-0.7) k/uL Basophils # 0.0 (0-0.2) k/uL Hypochromasia Slight Sodium 141 (137-145) mmol/L Potassium 5.1 (3.5-5.1) mmol/L Chloride 106 (98-107) mmol/L Carbon Dioxide 21 L (22-30) mmol/L Anion Gap 14 mmol/L BUN 14 (7-17) mg/dL Creatinine 0.73 (0.52-1.04) mg/dL Est GFR (MDRD) Af Amer >60 (>60 ml/min/1.73 sqM) Est GFR (MDRD) Non-Af >60 (>60 ml/min/1.73 sqM) Glucose 79 (74-99) mg/dL Calcium 9.9 (8.4-10.2) mg/dL Magnesium 2.0 (1.6-2.3) mg/dL Total Bilirubin 1.0 (0.2-1.3) mg/dL AST 30 (14-36) U/L ALT 22 (9-52) U/L Alkaline Phosphatase 61 (38-126) U/L Total Protein 8.4 H (6.3-8.2) g/dL Albumin 5.1 H (3.5-5.0) g/dL Lipase 115 (23-300) U/L Urine Color Yellow Urine Appearance Cloudy H (Clear) Urine pH 5.5 (5.0-8.0) Ur Specific [place] 1.027 (1.001-1.035) Urine Protein Trace H (Negative) Urine Glucose (UA) Negative (Negative) Urine Ketones Negative (Negative) Urine Blood Negative (Negative) Urine Nitrite Negative (Negative) Urine Bilirubin Negative (Negative) Urine Urobilinogen 2.0 (<2.0) mg/dL Ur Leukocyte Esterase Negative (Negative) Urine RBC 1 (0-5) /hpf Urine WBC 2 (0-5) /hpf Ur Squamous Epith Cells 13 H (0-4) /hpf Urine Bacteria Rare H (None) /hpf Hyaline Casts 2 (0-2) /lpf Urine Mucus Occasional H (None) /hpf Urine HCG, Qual (Not Detectd) 07/18/17 Range/Units 19:25 WBC (3.8-10.6) k/uL RBC (3.80-5.40) m/uL Hgb (11.4-16.0) gm/dL Hct (34.0-46.0) % MCV (80.0-100.0) fL MCH (25.0-35.0) pg MCHC (31.0-37.0) g/dL RDW (11.5-15.5) % Plt Count (150-450) k/uL Neutrophils % % Lymphocytes % % Monocytes % % Eosinophils % % Basophils % % Neutrophils # (1.3-7.7) k/uL Lymphocytes # (1.0-4.8) k/uL Monocytes # (0-1.0) k/uL Eosinophils # (0-0.7) k/uL Basophils # (0-0.2) k/uL Hypochromasia Sodium (137-145) mmol/L Potassium (3.5-5.1) mmol/L Chloride (98-107) mmol/L Carbon Dioxide (22-30) mmol/L Anion Gap mmol/L BUN (7-17) mg/dL Creatinine (0.52-1.04) mg/dL Est GFR (MDRD) Af Amer (>60 ml/min/1.73 sqM) Est GFR (MDRD) Non-Af (>60 ml/min/1.73 sqM) Glucose (74-99) mg/dL Calcium (8.4-10.2) mg/dL Magnesium (1.6-2.3) mg/dL Total Bilirubin (0.2-1.3) mg/dL AST (14-36) U/L ALT (9-52) U/L Alkaline Phosphatase (38-126) U/L Total Protein (6.3-8.2) g/dL Albumin (3.5-5.0) g/dL Lipase (23-300) U/L Urine Color Urine Appearance (Clear) Urine pH (5.0-8.0) Ur Specific [place] (1.001-1.035) Urine Protein (Negative) Urine Glucose (UA) (Negative) Urine Ketones (Negative) Urine Blood (Negative) Urine Nitrite (Negative) Urine Bilirubin (Negative) Urine Urobilinogen (<2.0) mg/dL Ur Leukocyte Esterase (Negative) Urine RBC (0-5) /hpf Urine WBC (0-5) /hpf Ur Squamous Epith Cells (0-4) /hpf Urine Bacteria (None) /hpf Hyaline Casts (0-2) /lpf Urine Mucus (None) /hpf Urine HCG, Qual Not Detected (Not Detectd) Disposition Clinical Impression: Abdominal pain Disposition: HOME SELF-CARE Condition: Good Instructions: Abdominal Pain (ED), Peptic Ulcer (ED) Prescriptions: Dicyclomine [Bentyl] 20 mg PO QID PRN #20 tablet PRN Reason: Pain Sucralfate [Carafate] 1 gm PO ACHS #150 ml Referrals: Kristina Foster MD [Primary Care Provider] - 1-2 days Time of Disposition: 20:55
[2017-07-18 19:45] LABS: Basophils % (A) 0 %; Eosinophils # (A) 0.1 k/uL (0-0.7); Eosinophils % (A) 1 %; HCT 42.2 % (34.0-46.0); HGB 12.9 gm/dL (11.4-16.0); Hypochromasia Slight; Lymphocytes # (A) 2.8 k/uL (1.0-4.8); Lymphocytes % (A) 26 %; MCHC 30.7 g/dL (31.0-37.0); MCV 84.8 fL (80.0-100.0); Mean Platelet Volume 7.7; Monocytes # (A) 0.4 k/uL (0-1.0); Monocytes % (A) 4 %; Neutrophils # (A) 7.3 k/uL (1.3-7.7); Neutrophils % (A) 67 %; Platelet Count 254 k/uL (150-450); RBC 4.98 m/uL (3.80-5.40); RDW 15.1 % (11.5-15.5); WBC 10.9 k/uL (3.8-10.6)
[2017-07-18 19:47] LABS: Appearance,Urine Cloudy (Clear); Bacteria,Urine Rare /hpf; Bilirubin,Urine Negative (Negative); Blood,Urine Negative (Negative); Color,Urine Yellow; Glucose,Urine (UA) Negative (Negative); Hyaline Casts,Urine 2 /lpf (0-2); Ketones,Urine Negative (Negative); Leukocyte Esterase,Urine Negative (Negative); Mucus,Urine Occasional /hpf; Nitrite,Urine Negative (Negative); PH, Urine 5.5 (5.0-8.0); Protein,Urine Trace (Negative); RBC,Urine 1 /hpf (0-5); Specific Gravity,Urine 1.027 (1.001-1.035); Squamous Epithelial Cell,Urine 13 /hpf (0-4); WBC,Urine 2 /hpf (0-5)
[2017-07-18 20:10] LABS: ALT 22 U/L (9-52); AST 30 U/L (14-36); Albumin 5.1 g/dL (3.5-5.0); Alkaline Phosphatase 61 U/L (38-126); Anion Gap 14 mmol/L; Blood Urea Nitrogen 14 mg/dL (7-17); Calcium 9.9 mg/dL (8.4-10.2); Carbon Dioxide 21 mmol/L (22-30); Chloride 106 mmol/L (98-107); Glucose 79 mg/dL (74-99); Lipase 115 U/L (23-300); Potassium 5.1 mmol/L (3.5-5.1); Sodium 141 mmol/L (137-145); Total Protein 8.4 g/dL (6.3-8.2)
[2017-07-18 21:14] VITALS: BP 125/82; PULSE 97; TEMP 97.9
== END 2017-07-18 21:14 | disposition home or self-care (01) ==
LOC: EC 17:32
DX: R10.13 Epigastric pain (principal); F17.200 Nicotine dependence, unspecified, uncomplicated; Z98.51 Tubal ligation status; Z53.29 Procedure and treatment not carried out because of patient's decision for other reasons
CPT/HCPCS: 36415; 80053; 81001; 81025; 83690; 83735; 85025; 96361; 96374; 99284

== ENCOUNTER 2017-08-16 13:10 | Emergency (ER) | payer OTHER ==
[2017-08-16 13:20] VITALS: BP 114/61; TEMP 97.3
--- NOTE | 2017-08-16 13:32 | ED ---
Upper Extremity HPI - General Chief Complaint: Extremity Injury, Upper Stated Complaint: Arm Injury Time Seen by Provider: 08/16/17 13:22 Source: patient, RN notes reviewed Mode of arrival: ambulatory Limitations: no limitations - History of Present Illness Initial Comments: This is a 27-year-old female presents to the emergency department with chief complaint of right wrist injury. Patient states that at approximately 9 PM last evening she slipped on a wet floor in her home. She states that she tried to catch herself and injured her right wrist. She states she was unable to move it at the time but thought that she could sleep and see how it felt this morning. Patient complains of continued pain and difficulty moving her right wrist. Denies any other injuries or trauma. Denies fever, chills, chest pain, shortness of breath, abdominal pain, nausea or vomiting, constipation or diarrhea, dysuria or hematuria, numbness or tingling, headache or vision changes. - Related Data Home Medications Medication Instructions Recorded Confirmed No Known Home Medications [No 08/16/17 08/16/17 Known Home Medications] Allergies Allergy/AdvReac Type Severity Reaction Status Date / Time No Known Allergies Allergy Verified 08/16/17 13:42 Review of Systems ROS Statement: Those systems with pertinent positive or pertinent negative responses have been documented in the HPI. ROS Other: All systems not noted in ROS Statement are negative. Past Medical History Past Medical History: No Reported History History of Any Multi-Drug Resistant Organisms: None Reported Past Surgical History: Adenoidectomy, Section, Ear Surgery, Tubal Ligation Past Anesthesia/Blood Transfusion Reactions: No Reported Reaction Past Psychological History: No Psychological Hx Reported Smoking Status: Current every day smoker Past Alcohol Use History: None Reported Past Drug Use History: None Reported - Past Family History Father Family Medical History: Cancer Additional Family Medical History / Comment(s): kidney cancer General Exam - General Exam Comments Initial Comments: General: Awake and alert, well-developed; in no apparent distress. HEENT: Head atraumatic, normocephalic. Pupils are equal, round and reactive to light. Extraocular movements intact. Oropharynx moist without erythema or exudate. Neck: Supple. Normal ROM. Cardiovascular: Regular rate and rhythm. No murmurs, rubs or gallops. Chest symmetrical. Respiratory: Lungs clear to auscultation bilaterally. No wheezes, rales or rhonchi. Normal respiratory effort with no use of accessory muscles. Musculoskeletal: Limited range of motion of the right wrist due to pain. Snuffbox tenderness noted. There is mild swelling dorsal aspect of right wrist. No erythema or contusions noted. Sensation is intact. Radial pulses are 2+ equal and palpable bilaterally. Skin: [place], warm and dry without rashes or lesions. Neurological: Alert and oriented x3. CN II-XII grossly intact. Speech is fluent and answers are appropriate. No focal neuro deficits. Psychiatric: Normal mood and affect. No overt signs of depression or anxiety noted. Limitations: no limitations Course Vital Signs 08/16/17 13:15 Temperature 97.3 F L Pulse Rate 97 Respiratory 17 Rate Blood Pressure 114/61 O2 Sat by Pulse 97 Oximetry Procedures - Orthopedic Splinting/Casting Injury #1 Side: right Upper Extremity Injury Location: wrist Upper Extremity Immobilizer: thumb spica, synthetic pre-padded splint Additional Comments: Tolerated well. Neurovascularly intact. Medical Decision Making - Medical Decision Making This is a 27-year-old female who presents to the emergency department with chief complaint of right wrist injury. X-ray revealed no acute fractures or dislocations, however patient does have snuffbox tenderness. A thumb spica splint was placed to the right wrist. Patient tolerated well and is neurovascularly intact. She will be discharged home with recommendation to follow-up with orthopedics within 1-2 days. She is in agreement and voices understanding. All questions answered. - Radiology Data Radiology results: report reviewed Right wrist x-ray impression: No abnormality evident. Disposition Clinical Impression: Right wrist pain Disposition: HOME SELF-CARE Condition: Good Instructions: Wrist Injury (ED) Additional Instructions: Please keep splint clean, dry and intact. Please follow up with Dr. Trinh, orthopedics within 1-2 days. Contact information is provided. Please follow up with primary care provider within 1-2 days. Return to emergency department if symptoms should worsen or any concerns arise. Referrals: Kristina Foster MD [Primary Care Provider] - 1-2 days Luis Trinh MD [STAFF PHYSICIAN] - 1-2 days Time of Disposition: 14:32
--- NOTE | 2017-08-16 13:56 | XR ---
Right wrist HISTORY: Pain 4 views of the right wrist Bone mineralization, joint spaces and alignment are maintained. No fracture or dislocation. IMPRESSION: No abnormality evident
[2017-08-16 14:48] VITALS: PULSE 97; RESP 17
== END 2017-08-16 14:48 | disposition home or self-care (01) ==
LOC: EC 13:10
DX: M25.531 Pain in right wrist (principal); F17.200 Nicotine dependence, unspecified, uncomplicated; W01.0XXA Fall on same level from slipping, tripping and stumbling without subsequent striking against object, initial encounter; Y92.009 Unspecified place in unspecified non-institutional (private) residence as the place of occurrence of the external cause
CPT/HCPCS: 29125; 99283

== ENCOUNTER 2017-11-06 03:55 | Emergency (ER) | payer OTHER ==
[2017-11-06 04:01] VITALS: BP 142/88; PULSE 73; RESP 18; TEMP 97.5
[2017-11-06] MEDS ORDERED: KETOROLAC 60 MG/2 ML VIAL IM STA (04:08)
[2017-11-06] MEDS ORDERED: AMOXICILLIN 875 MG TAB PO STA (04:11)
[2017-11-06] MEDS ORDERED: HYDROcodone/APAP 5-325MG 1 EACH TAB PO STA (04:14)
--- NOTE | 2017-11-06 04:14 | ED ---
General Adult HPI - General Chief complaint: ENT Stated complaint: ear pain Time Seen by Provider: 11/06/17 04:00 Source: patient, RN notes reviewed Mode of arrival: ambulatory Limitations: no limitations - History of Present Illness Initial comments: This is a 27-year-old female comes into the emergency department stating she woke up a little while ago with pain just anterior to the left ear she states it radiates down to her jaw. Patient also states her teeth hurt on the lower left side. Patient states she has had this in the past and had multiple teeth removed in the past. Patient denies any drainage from the ear patient denies any tenderness with moving air. Patient denies any decreased hearing. Patient denies any fever chills per patient denies sore throat. - Related Data Previous Rx's Medication Instructions Recorded Amoxicillin 500 mg PO Q8H #30 capsule 11/06/17 Ibuprofen [Motrin] 600 mg PO Q6HR PRN #20 tab 11/06/17 Allergies Allergy/AdvReac Type Severity Reaction Status Date / Time No Known Allergies Allergy Verified 08/16/17 13:42 Review of Systems ROS Statement: Those systems with pertinent positive or pertinent negative responses have been documented in the HPI. ROS Other: All systems not noted in ROS Statement are negative. Past Medical History Past Medical History: No Reported History History of Any Multi-Drug Resistant Organisms: None Reported Past Surgical History: Adenoidectomy, Section, Ear Surgery, Tubal Ligation Past Anesthesia/Blood Transfusion Reactions: No Reported Reaction Past Psychological History: No Psychological Hx Reported Smoking Status: Current every day smoker Past Alcohol Use History: None Reported Past Drug Use History: None Reported - Past Family History Father Family Medical History: Cancer Additional Family Medical History / Comment(s): kidney cancer General Exam - General Exam Comments Initial Comments: GENERAL: Patient is well-developed and well-nourished. Patient is nontoxic and well- hydrated and is in moderate distress. ENT: Neck is soft and supple. No significant lymphadenopathy is noted. Oropharynx is clear. Moist mucous membranes. Neck has full range of motion without eliciting any pain. EYES: The sclera were anicteric and conjunctiva were pink and moist. Extraocular movements were intact and pupils were equal round and reactive to light. Eyelids were unremarkable. MOUTH Patient has some tenderness along the left premolar on the bottom. SKIN: Skin is clear with no lesions or rashes and otherwise unremarkable. NEUROLOGIC: Patient is alert and oriented x3. Cranial nerves II through XII are grossly intact. Motor and sensory are also intact. Normal speech, volume and content. Symmetrical smile. MUSCULOSKELETAL: Normal extremities with adequate strength and full range of motion. LYMPHATICS: No significant lymphadenopathy is noted PSYCHIATRIC: Normal psychiatric evaluation. Normal interpersonal interactions appears functionally intact in deals appropriately with others. No signs of depression. No signs of anxiety. Limitations: no limitations Course Vital Signs 11/06/17 03:57 Temperature 97.5 F L Pulse Rate 73 Respiratory 18 Rate Blood Pressure 142/88 O2 Sat by Pulse 99 Oximetry Disposition Clinical Impression: Pain, dental Disposition: HOME SELF-CARE Instructions: Toothache (ED) Prescriptions: Amoxicillin 500 mg PO Q8H #30 capsule Ibuprofen [Motrin] 600 mg PO Q6HR PRN #20 tab PRN Reason: For pain Is patient prescribed a controlled substance at d/c from ED?: No Referrals: Kristina Foster MD [Primary Care Provider] - 1-2 days Time of Disposition: 04:15
== END 2017-11-06 04:51 | disposition home or self-care (01) ==
LOC: EC 03:55
DX: K08.89 Other specified disorders of teeth and supporting structures (principal); H92.02 Otalgia, left ear; F17.200 Nicotine dependence, unspecified, uncomplicated
CPT/HCPCS: 99283; 96372; J1885

== ENCOUNTER → 2020-02-17 | Outpatient (CLI) | payer OTHER | END | disposition home or self-care (01) | LOC: LABWHC1 13:08 | PROVIDERS: ATTEND Emergency Medicine | DX: Z20.828 Contact with and (suspected) exposure to other viral communicable diseases (principal) | CPT/HCPCS: U0003; C9803 ==

== ENCOUNTER 2022-06-25 04:56 | Emergency (ER) | payer OTHER ==
[2022-06-25 05:15] VITALS: RESP 16; TEMP 98
--- NOTE | 2022-06-25 07:42 | ED ---
General Adult HPI - General Source: patient, RN notes reviewed Mode of arrival: ambulatory Limitations: no limitations <Brandan Ramirez - Last Filed: 06/25/22 07:38> <Felipe Yeboah - Last Filed: 06/25/22 10:20> - General Chief complaint: Headache Stated complaint: dizzy, body is going numb - History of Present Illness Initial comments: 32 year old female presents to the ER for headache x 4 days. Headache is in both temples and wraps around her head. Rates the pain at a 9/10. She took excedrin at 4 am this morning which didn't help. Admits to nausea, denies vomiting. + light sensitivity. Has had similar headaches when starting period. No history of migraines. Denies chance of . Both hands arms and left leg have been going numb for 4 days. This is intermittent. Leg is only at night when she rolls onto her stomach. No room spinning dizziness. (Brandan Ramirez) This is a 32-year-old female presents emergency department stating she has a history of a headache for 4 days per patient states it's starts in the temples around from her whole head. Patient states the pain got worse over the last 4 days but when I came into the room she was sleeping woke up and stated that the pain was better at this point. Patient states she did vomit once prior to coming in. Patient states her whole body feels numb she states that it is more of a tingling sensation than actual numbness. Patient is any weakness. Patient is any fever chills or cough per patient denies any chest pain difficulty breathing or shortness of breath per patient denies any abdominal pain. Patient denies any trauma patient is any procedures on her back. (Felipe Yeboah) - Related Data Previous Rx's Medication Instructions Recorded Amoxicillin 500 mg PO Q8H #30 capsule 11/06/17 Ibuprofen [Motrin] 600 mg PO Q6HR PRN #20 tab 11/06/17 Allergies Allergy/AdvReac Type Severity Reaction Status Date / Time No Known Allergies Allergy Verified 08/16/17 13:42 Review of Systems ROS Other: All systems not noted in ROS Statement are negative. <Brandan Ramirez - Last Filed: 06/25/22 07:38> ROS Other: All systems not noted in ROS Statement are negative. <Felipe Yeboah - Last Filed: 06/25/22 10:20> ROS Statement: Those systems with pertinent positive or pertinent negative responses have been documented in the HPI. Past Medical History Past Medical History: Hypertension History of Any Multi-Drug Resistant Organisms: None Reported Past Surgical History: Adenoidectomy, Section, Ear Surgery, Tubal Ligation Past Anesthesia/Blood Transfusion Reactions: No Reported Reaction Past Psychological History: No Psychological Hx Reported Smoking Status: Current every day smoker Past Alcohol Use History: Occasional Past Drug Use History: Marijuana - Past Family History Father Family Medical History: Cancer Additional Family Medical History / Comment(s): kidney cancer <Brandan Ramirez - Last Filed: 06/25/22 07:38> General Exam Limitations: no limitations <Brandan Ramirez - Last Filed: 06/25/22 07:38> <Felipe Yeboah - Last Filed: 06/25/22 10:20> - General Exam Comments Initial Comments: GENERAL: Patient is well-developed and well-nourished. Patient is nontoxic and well- hydrated and is in mild distress. ENT: Neck is soft and supple. No significant lymphadenopathy is noted. Oropharynx is clear. Moist mucous membranes. Neck has full range of motion without eliciting any pain. EYES: The sclera were anicteric and conjunctiva were pink and moist. Extraocular movements were intact and pupils were equal round and reactive to light. Eyelids were unremarkable. PULMONARY: Unlabored respirations. Good breath sounds bilaterally. No audible rales rhonchi or wheezing was noted. CARDIOVASCULAR: There is a regular rate and rhythm without any murmurs gallops or rubs. ABDOMEN: Soft and nontender with normal bowel sounds. SKIN: Skin is clear with no lesions or rashes and otherwise unremarkable. NEUROLOGIC: Patient is alert and oriented x3. Cranial nerves II through XII are grossly intact. Motor and sensory are also intact. Normal speech, volume and content. Symmetrical smile. MUSCULOSKELETAL: Normal extremities with adequate strength and full range of motion. No lower extremity swelling or edema. No calf tenderness. LYMPHATICS: No significant lymphadenopathy is noted PSYCHIATRIC: Normal psychiatric evaluation. (Felipe Yeboah) Course Vital Signs 06/25/22 06/25/22 05:13 09:29 Temperature 98 F Pulse Rate 93 68 Respiratory 16 16 Rate Blood Pressure 158/92 145/68 O2 Sat by Pulse 98 98 Oximetry Medical Decision Making <Felipe Yeboah - Last Filed: 06/25/22 10:20> - Medical Decision Making EKG was interpreted by me. EKG shows sinus rhythm at 80 bpm DC interval 137 QRSs 81 Q-T intervals 363 QTC is 399. Patient's EKG shows no ST segment elevation or depression. Was pt. sent in by a medical professional or institution (, [facility], FORENSIC IDENTIFICATION SPECIALIST, urgent care, hospital, or jail...) When possible be specific @ -[No] Did you speak to anyone other than the patient for history (EMS, parent, family, police, friend...)? What history was obtained from this source @ -[No] Did you review nursing and triage notes (agree or disagree)? Why? @ -[I reviewed and agree with nursing and triage notes] Were old charts reviewed (outside hosp., previous admission, EMS record, old EKG, old radiological studies, urgent care reports/EKG's, jail records)? Report findings @ -[No old charts were reviewed] Differential Diagnosis (chest pain, altered mental status, abdominal pain women, abdominal pain men, vaginal bleeding, weakness, fever, dyspnea, syncope, headache, dizziness, GI bleed, back pain, seizure, CVA, palpatations, mental health)? @ -Differential Headache: Migraine, tension, cluster, carbon monoxide, central venous thrombosis, pension karma temporal arteritis, acute closure glaucoma, intercranial hemorrhage, mastoiditis, sinusitis, head injury, this is not meant to be an all-inclusive list. EKG interpreted by me (3pts min.). @ -[As above] X-rays interpreted by me (1pt min.). @ -[None done] CT interpreted by me (1pt min.). @ -I interpret the CT of the brain the CT of the brain showed no acute abnormality. U/S interpreted by me (1pt. min.). @ -[None done] What testing was considered but not performed or refused? (CT, X-rays, U/S, labs)? Why? @ -[None] What meds were considered but not given or refused? Why? @ -[None] Did you discuss the management of the patient with other professionals (professionals i.e. , PA, FORENSIC IDENTIFICATION SPECIALIST, lab, RT, psych nurse, social work supervisor, director facilities maintenance, teacher, chief information security officer, child support case officer)? Give summary @ -[No] Was smoking cessation discussed for >3mins.? @ -[No] Was critical care preformed (if so, how long)? @ -[No] Were there social determinants of health that impacted care today? How? (Homelessness, low income, unemployed, alcoholism, drug addiction, transportation, low edu. Level, literacy, decrease access to med. care, fdc, rehab)? @ -[No] Was there de-escalation of care discussed even if they declined (Discuss DNR or withdrawal of care, Hospice)? DNR status @ -[No] What co-morbidities impacted this encounter? (DM, HTN, Smoking, COPD, CAD, Cancer, CVA, ARF, Chemo, Hep., AIDS, mental health diagnosis, sleep apnea, morbid obesity)? @ -[None] Was patient admitted / discharged? Hospital course, mention meds given and route, prescriptions, significant lab abnormalities, going to OR and other pertinent info. @ -She will be discharged home. Patient was given half of Dilaudid in the emergency department. I went back into reevaluate her and she was again sleeping and patient was taken to CAT scan and she walks her back. Patient stated that her headache was considerably better at discharge. Patient states her headache was nearly there all. Undiagnosed new problem with uncertain prognosis? @ -[No] Drug Therapy requiring intensive monitoring for toxicity (Heparin, Nitro, Insulin, Cardizem)? @ -[No] Were any procedures done? @ -[No] Diagnosis/symptom? @ -Cephalgia Acute, or Chronic, or Acute on Chronic? @ -Acute Uncomplicated (without systemic symptoms) or Complicated (systemic symptoms)? @ -Uncomplicated Side effects of treatment? @ -[No] Exacerbation, Progression, or Severe Exacerbation? @ -[No] Poses a threat to life or bodily function? How? (Chest pain, USA, VT, pneumonia, PE, COPD, DKA, ARF, appy, cholecystitis, CVA, Diverticulitis, Homicidal, Suicidal, threat to staff... and all critical care pts) @ -[No] (Felipe Yeboah) - Lab Data Lab Results 06/25/22 Range/Units 05:16 Influenza Type A (PCR) Not Detected (Not Detectd) Influenza Type B (PCR) Not Detected (Not Detectd) RSV (PCR) Not Detected (Not Detectd) SARS-CoV-2 (PCR) Not Detected (Not Detectd) Disposition <Brandan Ramirez - Last Filed: 06/25/22 07:38> Is patient prescribed a controlled substance at d/c from ED?: No Time of Disposition: 10:20 <Felipe Yeboah - Last Filed: 06/25/22 10:20> Clinical Impression: Acute headache Disposition: HOME SELF-CARE Condition: Good Additional Instructions: Patient should take Excedrin at home when necessary for headache. Patient should return if there are any worsening symptoms or new symptoms Referrals: None,Stated [Primary Care Provider] - 1-2 days
[2022-06-25] MEDS ORDERED: HYDROmorphone 0.5 MG/0.5 ML SYRINGE IVP STA (08:59)
[2022-06-25 09:30] VITALS: PULSE 68
--- NOTE | 2022-06-25 09:35 | CT ---
EXAMINATION TYPE: CT brain wo con DATE OF EXAM: 06/25/2022 COMPARISON: None. HISTORY: Headache x [address] DLP: 1188.7 mGycm. Automated Exposure Control for Dose Reduction was Utilized. TECHNIQUE: CT scan of the head is performed without contrast. FINDINGS: There is no acute intracranial hemorrhage, mass effect, or midline shift identified. The ventricles and sulci are within normal limits in size. Guillermo white differentiation is maintained. T he globes are intact and the visualized sinuses are clear. Metallic right nasal ornament is incident ally noted. IMPRESSION: No acute intracranial hemorrhage or midline shift is seen.
[2022-06-25] MEDS ORDERED: KETOROLAC 15 MG/ML 1 ML VIAL IVP STA (10:20)
[2022-06-25 11:28] VITALS: BP 130/68
== END 2022-06-25 11:29 | disposition home or self-care (01) ==
LOC: EC 04:56
DX: R51.9 Headache, unspecified (principal); I10 Essential (primary) hypertension; F12.90 Cannabis use, unspecified, uncomplicated; F17.200 Nicotine dependence, unspecified, uncomplicated; Z20.822 Contact with and (suspected) exposure to COVID-19
CPT/HCPCS: 93005; 87636; 70450; 99284; 96374; 96375; J1885; J1170

== ENCOUNTER → 2024-06-29 | Outpatient (CLI) | payer OTHER ==
--- NOTE | 2024-06-29 16:23 | MR ---
EXAMINATION TYPE: MR brain wo con DATE OF EXAM: 06/29/2024 3:07 PM COMPARISON: 06/25/2022. 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 No gadolinium was given. FINDINGS: The henderson-white junctions, ventricular system, basal cisterns appear unremarkable. Midline structures show no abnormality. Diffusion-weighted imaging shows no evidence of restricted diffusion. The suscep tibility weighted images do not reveal any evidence for micro-hemorrhage. The bone marrow signal is within normal limits. Paranasal sinuses and mastoid air cells: Mild scattered paranasal sinus disease. Visualized orbits: Orbital contents are intact. The globes and orbits have symmetrical appearance no abnormality identified. IMPRESSION: 1. No evidence of intracranial mass or acute/subacute infarct. 2. Symmetrical appearance of the globes. No abnormality involving the globes or orbits. [facility], , 06/29/2024 4:20 PM
== END | disposition home or self-care (01) ==
LOC: RADMRIMAIN 13:56
PROVIDERS: ATTEND Ophthalmology
DX: H47.333 Pseudopapilledema of optic disc, bilateral (principal); R51.9 Headache, unspecified
CPT/HCPCS: 70551